=== PATIENT | male | born 2000 | race Caucasian/White ===

== ENCOUNTER 2020-09-10 16:02 | Emergency (ER) | payer OTHER ==
[~2020-09-10] VITALS: Ht 170.2 cm; Wt 69.0 kg
[2020-09-10 17:50] VITALS: BP 102/70
== END 2020-09-10 17:50 | disposition home or self-care (01) ==
LOC: ER 16:02
DX: S30.0XXA Contusion of lower back and pelvis, initial encounter (principal); W18.30XA Fall on same level, unspecified, initial encounter; Y93.9 Activity, unspecified; Y92.9 Unspecified place or not applicable
CPT/HCPCS: 99281

== ENCOUNTER 2023-10-27 15:09 | Emergency (ER) | payer MEDICAID, OTHER ==
[~2023-10-27] VITALS: Ht 170.2 cm; Wt 79.0 kg
[~2023-10-27 15:09] MED LIST: NAPR-681 PO
[2023-10-27 15:33] VITALS: O2SAT 100
[2023-10-27] MEDS ORDERED: ACETAMINOPHEN 325MG TABLET PO ONE (16:30)
[2023-10-27 18:35] VITALS: BP 129/72; PULSE 94; RESP 18; TEMP 98.4
[2023-10-27] MEDS: ACETAMINOPHEN 325MG TABLET PO NR (18:40)
== END 2023-10-27 19:16 | disposition home or self-care (01) ==
LOC: ER 15:09
DX: M79.10 Myalgia, unspecified site (principal)
CPT/HCPCS: 99282